=== PATIENT | female | born 1945 | race Caucasian/White ===

== ENCOUNTER 2019-01-31 09:37 | Emergency (ER) | payer MEDICARE, OTHER, SELFPAY ==
--- NOTE | 2019-01-31 09:44 | ED.GENADUL_ITS ---
Discharge Plan Disposition Patient Disposition: HOME Condition: Good Discharge Details Chief Complaint: Urinary Clinical Impression: Acute UTI [facility] Provider: [facility] Provider: Robert Vigil Home Meds and New Rx's Prescriptions: New cephalexin [Keflex] 500 mg capsule 500 mg PO QID 5 Days Qty: 20 RF: 0 No Action multivitamin Tablet 1 tab PO DAILY RF: 0 methotrexate sodium 10 mg Tablet 10 mg PO QWEEK RF: 0 citalopram [Celexa] 20 mg Tablet 20 mg PO DAILY RF: 0 cholecalciferol (vitamin D3) [Vitamin D3] 1,000 unit Capsule 1,000 unit PO DAILY RF: 0 omega 9-ffw-bpo-fish oil [Fish Oil] 1,000 mg (120 mg-180 mg) Capsule 1 cap PO DAILY RF: 0 Discharge Instructions Instructions: Urinary Tract Infection in Women (ED) Additional Instructions: You have a urinary tract infection. Please take the antibiotics as directed. Please drink plenty of fluids. Please drink plenty of cranberry juice or use fiber supplements. If you notice any worsening of your symptoms, or any new symptoms such as vomiting, diarrhea, fever, chills, shortness of breath, chest pain, numbness, weakness, or fainting , please return immediately to the emergency department for reevaluation. Please follow up with your primary care provider as soon as possible for reassessment and reevaluation. As always, it was a pleasure participating in your medical care today. Medical Decision Making This is a pleasant 73-year-old female with a past medical history of psoriasis on weekly methotrexate who presents today for evaluation of suprapubic pressure and burning. Symptoms have been present for the last 48 hours. No concerning red flags of hematuria, diarrhea, fever, chills, flank pain or flank pain. Vital signs are notably stable, urinalysis demonstrates signs and symptoms clinically consistent with urinary tract infection and clinically inconsistent with pyelonephritis. With the patient's methotrexate use we will give higher dose of Keflex for treatment. No clinical evidence of sepsis. No indication for IV antibiotics or admission at this time. I have extensively reviewed the treatment plan and discharge instructions with the patient. I have addressed all patient concerns at this time. The patient was made aware of what symptoms to monitor for that would warrant a return to the emergency department. Discussed the plan with the patient, they demonstrate verbal understanding and agreement with our assessment and plan at this time. HPI General Date/Time Provider Initiated Documentation: 01/31/19 09:39 . HPI Narrative: This is a pleasant 73-year-old female with a past medical history of psoriasis who does take methotrexate once weekly, who is visiting from [place] who presents today for evaluation of mild dysuria, and increase in urinary frequency as well as suprapubic pressure for the last 48 hours. She has had urinary tract infections in the past and states that this feels identical to that. She denies any nausea vomiting, diarrhea, hematochezia, melena, acholic stool, generalized abdominal pain, flank pain, fever or chills. She has no other complaints at this time. No other modifying factors. She denies any history of kidney stones or hematuria. Related Data Home Medications Medication Instructions Recorded Confirmed cephalexin [Keflex] 500 mg PO QID 5 Days #20 cap 01/31/19 cholecalciferol (vitamin D3) 1,000 unit PO DAILY 01/31/19 01/31/19 [Vitamin D3] citalopram [Celexa] 20 mg PO DAILY 01/31/19 01/31/19 methotrexate sodium 10 mg PO QWEEK 01/31/19 01/31/19 multivitamin 1 tab PO DAILY 01/31/19 01/31/19 omega 5-qcp-zqt-fish oil [Fish Oil] 1 cap PO DAILY 01/31/19 01/31/19 Previous Rx's Medication Instructions Recorded cephalexin [Keflex] 500 mg PO QID 5 Days #20 cap 01/31/19 Allergies Allergy/AdvReac Type Severity Reaction Status Date / Time No Known Allergies Allergy Unverified 01/31/19 09:52 Review of Systems Review of Systems All systems reviewed & are unremarkable except as noted in HPI and below PFSH Social History Smoking/Tobacco Use Status: Never Alcohol Intake: current Alcohol Intake frequency: a few times a week Alcohol type: wine Drug use: Never Substance use type: does not use Do you feel safe at home: Yes Do you feel safe in your relationship?: Yes Exam Narrative Exam Narrative: 1.Const: Well-nourished, Well-developed, appearing stated age 2.Eyes: PERRL, no conjunctival injection, and symmetrical lids. 3.ENT: Atraumatic external nose and ears. Moist MM. Neck: Symmetric, trachea midline, No thyromegaly. 4.CVS: +S1/S2, No murmurs or gallops. Peripheral pulses 2+ and equal in all extremities. Brisk capillary refill in all extremities. 5.RESP: Unlabored respiratory effort. Clear to auscultation bilaterally. No wheezes rales or rhonchi 6.GI: Soft, Nontender/Nondistended, No hepatosplenomegaly. No guarding or rebound. Minimal suprapubic tenderness, no significant abdominal tenderness throughout. No guarding or rebound throughout. No flank or CVA tenderness. No pain at McBurney's point, negative Quintero sign. 7.MSK: Normocephalic/Atraumatic, Extremities w/o deformity or ttp No cyanosis or clubbing, Normal movement of all extremities 8.Skin: Warm, Dry. No rashes or lesions. 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 Sensation grossly intact, no focal neurologic deficits. 10.Psych: (AAO) x3. Appropriate mood and affect
[2019-01-31 09:47] VITALS: BP 124/60; PULSE 86; RESP 18; TEMP 36.8; O2SAT 98
[2019-01-31 10:05] LABS: Bilirubin Negative (Negative); Blood Negative (Negative); Clarity Clear (Clear); Glucose Negative (Negative); Ketones Negative (Negative); Leukocyte Esterase Small (Negative); Nitrite Negative (Negative); Urobilinogen 0.2 EU/dL (Up TO 0.2)
[2019-01-31 10:16] LABS: Epithelial Cells Few HPF (Negative); RBC Negative (0-2)
[2019-01-31 10:17] LABS: Bacteria Few HPF (Negative); C & S Indicated? Yes; Casts Negative LPF (Negative); Crystals Negative HPF (Negative); Mucus Moderate (Negative)
[2019-01-31 10:36] VITALS: BP 124/60; PULSE 86; RESP 18; TEMP 36.8; O2SAT 98
== END 2019-01-31 10:38 | disposition home or self-care (01) ==
PROVIDERS: Emergency Provider Student in an Organized Health Care Education/Training Program
DX: N39.0 Urinary tract infection, site not specified (principal); Z87.440 Personal history of urinary (tract) infections
CPT/HCPCS: 99283; 81003; 81015; 87086